=== PATIENT | male | born 1985 | race Caucasian/White ===

== ENCOUNTER 2023-06-13 08:07 | Outpatient (RCR) | payer OTHER, SELFPAY ==
--- NOTE | 2023-06-01 12:09 | ONC.NURNOTE ---
Addendum entered by Alejandra Montiel RN 06/12/23 09:51: Email from provider seeing patient notes to have labs completed prior to seeing patient and determine need for scans at the appointment. Nursing attempted to contact patient to let him know, but his voicemail is not set up. Original Note: Patient called and talked with MO to say that he now has insurance and would like to follow up with oncology. Legal Clerk looked through information, patient was last treated with pembrolizumab on 11/05/2021 and seen on 01/13/[address] Georges. At this appointment discussion was had to be seen by dermatology every 6 months and follow up with scans in three months. These appointments were cancelled. Will discuss with Dr. Georges next week to determine what needs prior to being seen. Patient made aware of this, and asked that he establish care with technical sme. Patient will work on setting up that appointment and nursing to discuss with him when making follow up appointment.
[2023-06-13 08:29] LABS: Basophils Absolute Auto 0.02 K/uL (0.00-0.30); Basophils Percent Auto 0.3 % (0.0-3.0); Eosinophils Percent Auto 2.7 % (0.0-7.0); Hematocrit 49.9 % (37.0-53.0); Hemoglobin* 16.5 gm/dL (13.5-17.5); Immature Granulocytes Abs Auto 0.07 K/uL (0.00-0.30); Immature Granulocytes Pct Auto 0.9 %; Lymphocytes Absolute Auto 1.92 K/uL (0.90-2.90); Mean Corpuscular HGB Conc 33 gm/dL (32-36); Mean Corpuscular Hemoglobin 30 pg (26-34); Mean Corpuscular Volume 91 fL (80-100); Monocytes Percent Auto 9.9 % (0.0-11.0); Neutrophils Absolute Auto 4.44 K/uL (1.7-7.0); Neutrophils Percent Auto 60.2 % (42.0-72.0); Platelet Count* 290 K/uL (140-440); Red Blood Count 5.47 m/uL (4.30-5.90); White Blood Count* 7.38 K/uL (4.50-11.00)
[2023-06-13 08:30] LABS: Slide Review Reflex No
[2023-06-13 08:40] LABS: Albumin* 4.1 g/dL (3.3-5.0)
[2023-06-13 08:41] LABS: Chloride* 105 mmol/L (96-114); Potassium* 4.1 mmol/L (3.6-5.1); Sodium* 141 mmol/L (135-149)
[2023-06-13 08:43] LABS: Alkaline Phosphatase* 45 U/L (40-150); Anion Gap 5 mEq/L (7-15); Aspartate Amino Transferase* 30 U/L (12-35); Bilirubin Total* 0.6 mg/dL (0.1-1.5); Blood Urea Nitrogen* 16 mg/dL (5-24); Carbon Dioxide* 31 mmol/L (20-32); Estimated Glomerular Filt Rate 99 ml/min; Total Protein* 6.9 g/dL (6.0-8.3)
[2023-06-13 08:44] LABS: Alanine Aminotransferase* 35 U/L (4-50); Calcium* 9.2 mg/dL (8.4-10.6); Lactate Dehydrogenase* 152 U/L (120-246)
[2023-06-13 08:51] LABS: Glucose* 44 mg/dL (60-115)
[2023-06-13 10:12] LABS: Glucose* 60 mg/dL (60-115)
--- NOTE | 2023-08-16 14:04 | ONC.NURNOTE ---
MRI and PET reviewed by Dr. Johns and pt should follow up in October. Launderette Attendant left pt a message stating Dr. Johns reviewed scans and pt should come in to see Dr. Johns on Oct 11 as previously scheduled.
== END 2023-12-10 23:59 | disposition home or self-care (01) ==
LOC: CCIC 08:07
PROVIDERS: Clinical Nurse Specialist; PCP Emergency Medicine; Referring Provider Emergency Medicine; Visit Provider Internal Medicine Hematology & Oncology
DX: C43.59 Malignant melanoma of other part of trunk (principal); E16.2 Hypoglycemia, unspecified
CPT/HCPCS: 36415; 80053; 82947; 83615; 85025; 99213; 99214; 99215

== ENCOUNTER 2023-07-27 16:47 | Outpatient (CLI) | payer OTHER, SELFPAY ==
--- NOTE | 2023-07-27 17:00 | PE_ITS ---
[address] [address] Phone:?[phone] Fax:?[phone] Referring Physician Information: Callie Johns M.D. [address] [facility] [address] Phone:? Fax:?[phone] Patient:Elizabeth Galvan D.O.B:?1985 Sex:?Male Phone:?[phone] [facility] MRN:?[id number] Exam Date:?07/27/2023 EXAM: PET/CT SCAN MID-ORBITS TO PROXIMAL THIGHS Addendum A EXAM: PET/CT WHOLE BODY, CANCER RESTAGING S: 10/16/23 Electronically signed on 10/06/2023 1:56:00 PM by Omid Vo M.D. Addendum B EXAM: PET/CT VERTEX TO TOES, CANCER RESTAGING S: 10/09/23 Electronically signed on 10/09/2023 8:52:00 AM by Omid Vo M.D. 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 Restaging evaluation. TECHNICAL INFORMATION: Spiral acquisition of data was obtained from the mid orbits to the proximal thighs with reconstruction of 3.75 mm thick images at 3.[address] data was used for attenuation correction. PET scanning was performed through the same anatomic range 52 minutes following administration of 13.33 mCi of 18-FDG delivered intravenously. The patient's glucose at the time of the injection was 69 mg/dL. PET, CT and PET/CT fusion images are interpreted using a computer viewing workstation. COMPARISON: PET/CT 02/23/2022. INTERPRETATION: Head and Neck: No abnormal radiotracer uptake. No pathologic adenopathy. Chest: No PET/CT activity of the posterior chest wall soft tissues. No axillary, hilar or mediastinal adenopathy. Stable calcified granuloma anterior left upper lobe and left major fissure nodule. Postsurgical changes left axilla without FDG uptake. No pleural or pericardial effusion. Abdomen, Pelvis and Proximal Thighs: No abnormal FDG uptake within the abdomen or pelvis. No osseous abnormality. Subcutaneous activity of the right and left gluteal region. No obvious lesion is identified. Minimal subcutaneous stranding identified, stable on the right since 02/24/2022 and activity on the left appears new. Benign etiology is favored. Clinical correlation is advised. CONCLUSION: 1. FDG activity in the subcutaneous right and left gluteal region, relatively stable on the right since 2021 and new on the left, nonspecific finding, benign etiology is favored. Clinical correlation is advised. No additional PET CT abnormality to suggest residual or recurrent disease. Electronically signed on 07/28/2023 10:54:00 AM by Omid Vo M.D.
== END 2023-07-27 16:48 | disposition home or self-care (01) ==
LOC: RAD 16:48
PROVIDERS: PCP Emergency Medicine; Visit Provider Internal Medicine Hematology & Oncology
DX: C43.39 Malignant melanoma of other parts of face (principal)
CPT/HCPCS: 78816; A9552

== ENCOUNTER 2023-08-15 10:31 | Outpatient (CLI) | payer OTHER, SELFPAY ==
--- NOTE | 2023-08-15 10:15 | CRLHL7_ITS ---
For Patients: As a result of the Century Cures Act, medical imaging exams and procedure reports are released immediately into your electronic medical record. You may view this report before your referring provider. If you have questions, please contact your health care provider. Indication: Malignant melanoma. Technique: T1 sagittal as well as diffusion, FLAIR and T2 axial sequences were obtained. Post gadolinium T1 sequences were obtained. Contrast: 15 cc DOTAREM. Comparison: None are available. Findings: No abnormal contrast enhancement involving the brain parenchyma, meninges, calvarium or skull base. No evidence for recent or remote infarct or hemorrhage. No intracranial mass effect. No ventricular obstruction. No signal changes in the brain parenchyma. Grossly normal flow voids are maintained in the directly imaged intracranial vascular structures. The craniovertebral junction is unremarkable, with a patent foramen magnum. A few tiny opacified air cells are seen in the periphery of both mastoids. There is slight membrane thickening in the ethmoid paranasal sinuses. Impression: 1. The intracranial contents are negative. No evidence for metastatic disease. 2. A few opacified air cells are seen in both peripheral mastoids. Dictated by Sam Oliva MD @ 08/15/2023 2:24:39 PM (Electronically Signed)
== END 2023-08-15 10:32 | disposition home or self-care (01) ==
LOC: MRI 10:32
PROVIDERS: PCP Emergency Medicine; Visit Provider Internal Medicine Hematology & Oncology
DX: C43.9 Malignant melanoma of skin, unspecified (principal)
CPT/HCPCS: 70553; A9575

== ENCOUNTER 2024-03-07 14:40 | Outpatient (CLI) | payer OTHER, SELFPAY ==
--- NOTE | 2024-03-07 16:00 | PE_ITS ---
[facility] [address] [facility] [address] Phone:?[phone] Fax:?[phone] Referring Physician Information: Callie Johns M.D. [address] [facility] [address] Phone:?[phone] Fax:?[phone] Patient:Elizabeth Galvan D.O.B:?1985 Sex:?Male Phone:?[phone] [facility] MRN:?[id number] Exam Date:?03/07/2024 EXAM: PET/CT WHOLE BODY, CANCER RESTAGING CLINICAL INFORMATION: Melanoma, restaging. TECHNICAL INFORMATION: Helical acquisition of data was obtained from the vertex to the toes with reconstruction of 3.75 mm thick images at 3.[address] data was used for attenuation correction. PET scanning was performed through the same anatomic range 60 minutes following administration of 13.37 mCi of 18-FDG delivered intravenously. The patient's glucose at the time of the injection was 66 mg/dL. PET, CT and PET/CT fusion images are interpreted using a computer viewing workstation. PET, CT and PET/CT fusion images were archived and saved in the patient's permanent medical record. COMPARISON: PET-CT from 07/27/2023 and prior studies. INTERPRETATION: Head and Neck: There are no abnormal hypermetabolic foci within the head or neck. There is physiologic uptake in the intracranial soft tissues. Chest: There are no abnormal hypermetabolic foci within the chest. Background mediastinal blood pool uptake has a maximum SUV of 1.55. No lung nodules or masses detected on this free-breathing exam. No lymphadenopathy detected. Abdomen and Pelvis: There are no abnormal hypermetabolic foci within the abdomen or pelvis. Background hepatic parenchymal uptake has a maximum SUV of 2.17. There is physiologic excretion of radiotracer in the urine and bowel. Skeleton, Musculature, and Integument: There is a new focus of increased FDG uptake corresponding to the left L5-S1 nerve root (Se 2 Im 264) with a maximum SUV of 7.06. No abnormal hypermetabolic foci within the skeleton, per se. No desiree osteoblastic or osteolytic disease. CONCLUSION: Active melanoma is thought to be extremely unlikely in this case. A new focus of hypermetabolism involving the left L5-S1 nerve root would be highly unusual for solitary metastasis. More likely considerations include focal disc herniation versus a nerve sheath tumor. Recommend lumbar MRI without and with gadolinium for further evaluation. The remainder of the examination is within normal limits. Electronically signed on 03/08/2024 2:22:00 PM by Michael oPllard M.D.
== END 2024-03-07 14:41 | disposition home or self-care (01) ==
PROVIDERS: PCP Emergency Medicine; Visit Provider Internal Medicine Hematology & Oncology
DX: Z08 Encounter for follow-up examination after completed treatment for malignant neoplasm (principal); C43.39 Malignant melanoma of other parts of face; Z71.89 Other specified counseling
CPT/HCPCS: 36415; 78816; 80053; 83615; 85025; A9552

== ENCOUNTER 2024-05-10 13:22 | Outpatient (CLI) | payer MEDICARE, SELFPAY ==
--- NOTE | 2024-05-10 13:45 | CRLHL7_ITS ---
For Patients: As a result of the Century Cures Act, medical imaging exams and procedure reports are released immediately into your electronic medical record. You may view this report before your referring provider. If you have questions, please contact your health care provider. Indication: Malignant melanoma of skin. PET scan demonstrating lesion at L5-S1 Technique: Multiplanar, multisequence, MRI of the lumbar spine, obtained without and with contrast. A total of 15 mL of gadolinium based IV contrast was administered. Comparison: PET-CT 03/07/2024, 07/27/2023 Findings: There is focal nodular enlargement and enhancement in the region of the left L5 nerve root-sheath complex at the left L5-S1 neural foramen, corresponding to the new FDG avid focus on recent PET-CT. On the sagittal T1 and T2 sequences (series 2 and 3, image 13), there is lobulated slightly hyperintense signal and enhancement superiorly attributed to the nerve sheath, with the hypointense nerve root appearing slightly deformed/flattened inferiorly. A small enhancing T2 hyperintense focus is present within the left aspect of the L3 vertebral body, with subtle intrinsic T1 shortening, suggestive of a small intraosseous hemangioma. Remaining bone marrow signal is unremarkable. No other abnormal postcontrast enhancement identified. The conus medullaris terminates at L1. The included SI joints are unremarkable. T12-L1 through L3-L4: No neural foraminal or spinal canal stenosis. L4-L5: Disc degeneration, shallow central disc protrusion and annular fissure, mild facet arthropathy. Mild left, mild-moderate right neural foraminal narrowing. No spinal canal stenosis. L5-S1: Disc degeneration, broad-based right subarticular disc protrusion slightly encroaching upon the descending right S1 nerve root. No spondylitic narrowing of the neural foramina or central spinal canal. Impression: 1. Solitary lobulated 6-7 mm enhancing focus at the left L5-S1 neural foramen corresponds to the new FDG avid lesion on recent PET-CT. 2. It appears to inferiorly displace/deform the underlying left L5 nerve root, suggestive of nerve sheath tumor such as schwannoma. 3. Metastatic disease is thought much less likely. Clinical correlation and attention on follow-up advised. 4. Lower lumbar spondylosis as detailed. Dictated by Celsa Luis MD @ 05/10/2024 3:37:21 PM (Electronically Signed)
== END 2024-05-10 13:23 | disposition home or self-care (01) ==
LOC: MRI 13:23
PROVIDERS: PCP Family Medicine; Visit Provider Internal Medicine Hematology & Oncology
DX: C43.9 Malignant melanoma of skin, unspecified (principal); M47.896 Other spondylosis, lumbar region
CPT/HCPCS: 72158; A9575

== ENCOUNTER 2024-08-07 09:09 | Outpatient (CLI) | payer OTHER, SELFPAY ==
--- NOTE | 2024-08-07 09:15 | CRLHL7_ITS ---
For Patients: As a result of the Century Cures Act, medical imaging exams and procedure reports are released immediately into your electronic medical record. You may view this report before your referring provider. If you have questions, please contact your health care provider. Indication: Melanoma. Technique: Multisequence multiplanar MRI of the lumbar spine prior to and following administration of 15 cc Dotarem gadolinium based intravenous contrast. Comparison: MRI lumbar spine dated 05/10/2024. Findings: Normal vertebral alignment and stature. Stable L3 vertebral hemangioma. Unchanged 12 mm enhancing lesion within left L5-S1 neural foramen (series 8, image 38). No focus of new abnormal enhancement. T12-L1 through L3-L4: No significant spinal canal or neural foraminal stenosis. L4-L5: Mild disc desiccation and height loss. Symmetric disc bulge containing a small horizontal annular fissure. Mild narrowing of the lateral recesses without high-grade spinal canal stenosis. Mild-moderate bilateral neural foraminal narrowing. L5-S1: Symmetric disc bulge with small right paracentral disc protrusion questionably contacting the traversing right S1 nerve root (series 6, image 40). Mild bilateral neural foraminal narrowing with enhancing lesion in the left neural foramen as above. Impression: 1. Unchanged solitary enhancing lesion within the left L5-S1 neural foramen most consistent with peripheral nerve sheath tumor such as schwannoma. 2. Otherwise, no abnormal enhancement or suspicious lesion within the lumbar spine. 3. At L4-L5, similar mild narrowing of the lateral recesses and mild-moderate bilateral neural foraminal narrowing. 4. At L5-S1, similar right paracentral disc protrusion questionably contacting the traversing S1 nerve root. Dictated by Sundeep Salinas MD @ 08/08/2024 4:18:41 PM (Electronically Signed)
== END 2024-08-07 09:10 | disposition home or self-care (01) ==
PROVIDERS: PCP Family Medicine; Visit Provider Neurological Surgery
DX: C43.9 Malignant melanoma of skin, unspecified (principal); M51.26 Other intervertebral disc displacement, lumbar region; M51.27 Other intervertebral disc displacement, lumbosacral region
CPT/HCPCS: 72158; A9575

== ENCOUNTER 2024-08-14 11:00 | Outpatient (RCR) | payer OTHER, SELFPAY ==
--- NOTE | 2024-03-05 10:18 | ONC.NURNOTE ---
Received phone call from [facility] stating that they are unable to get ahold of patient for his PET scan on . At first no VM was set up, now their number is blocked. [facility] asks that [facility]] call patient to be sure that he calls to confirm his appointment by 11AM on Monday, or his appointment will be pushed out. ([phone], option 1) Padded Products Inspector Trimmer attempted to call patient, and unable to leave voicemail. Will continue to call throughout the day.
--- NOTE | 2024-03-05 14:12 | PC.NURSE ---
Reached pt this afternoon and urged him to call [facility] in preparation for 's PET scan. After multiple attempts, pt answered. He was given phone number to call.
[2024-03-07 14:54] LABS: Basophils Absolute Auto 0.01 K/uL (0.00-0.30); Basophils Percent Auto 0.2 % (0.0-3.0); Eosinophils Percent Auto 1.6 % (0.0-7.0); Hematocrit 44.1 % (37.0-53.0); Hemoglobin* 14.3 gm/dL (13.5-17.5); Immature Granulocytes Abs Auto 0.02 K/uL (0.00-0.30); Immature Granulocytes Pct Auto 0.3 %; Lymphocytes Percent Auto 29.6 % (20-44); Mean Corpuscular HGB Conc 32 gm/dL (32-36); Mean Corpuscular Hemoglobin 31 pg (26-34); Mean Corpuscular Volume 96 fL (80-100); Monocytes Percent Auto 7.7 % (0.0-11.0); Neutrophils Absolute Auto 3.69 K/uL (1.7-7.0); Neutrophils Percent Auto 60.6 % (42.0-72.0); Platelet Count* 307 K/uL (140-440); RDW Coefficient of Variation % 12.4 % (11.5-15.5); Red Blood Count 4.62 m/uL (4.30-5.90); White Blood Count* 6.09 K/uL (4.50-11.00)
[2024-03-07 14:57] LABS: Slide Review Reflex No
[2024-03-07 15:09] LABS: Albumin* 4.8 g/dL (3.3-5.0); Chloride* 107 mmol/L (96-114); Potassium* 4.6 mmol/L (3.6-5.1); Sodium* 140 mmol/L (135-149)
[2024-03-07 15:12] LABS: Alanine Aminotransferase* 30 U/L (4-50); Alkaline Phosphatase* 68 U/L (40-150); Anion Gap 9 mEq/L (7-15); Aspartate Amino Transferase* 51 U/L (12-35); Bilirubin Total* 0.8 mg/dL (0.1-1.5); Blood Urea Nitrogen* 27 mg/dL (5-24); Carbon Dioxide* 24 mmol/L (20-32); Creatinine* 1.1 mg/dL (0.5-1.5); Estimated Glomerular Filt Rate 88 ml/min; Glucose* 75 mg/dL (60-115); Lactate Dehydrogenase* 178 U/L (120-246); Total Protein* 7.1 g/dL (6.0-8.3)
[2024-08-14 11:21] LABS: Basophils Absolute Auto 0.03 K/uL (0.00-0.30); Basophils Percent Auto 0.4 % (0.0-3.0); Eosinophils Absolute Auto 0.08 K/uL (0.00-0.50); Hematocrit 46.2 % (37.0-53.0); Hemoglobin* 15.4 gm/dL (13.5-17.5); Immature Granulocytes Abs Auto 0.01 K/uL (0.00-0.30); Immature Granulocytes Pct Auto 0.1 %; Lymphocytes Absolute Auto 1.92 K/uL (0.90-2.90); Lymphocytes Percent Auto 23.5 % (20-44); Mean Corpuscular HGB Conc 33 gm/dL (32-36); Mean Corpuscular Hemoglobin 31 pg (26-34); Mean Corpuscular Volume 92 fL (80-100); Monocytes Percent Auto 9.4 % (0.0-11.0); Neutrophils Absolute Auto 5.37 K/uL (1.7-7.0); Neutrophils Percent Auto 65.6 % (42.0-72.0); Platelet Count* 342 K/uL (140-440); RDW Coefficient of Variation % 12.4 % (11.5-15.5); Red Blood Count 5.04 m/uL (4.30-5.90); White Blood Count* 8.18 K/uL (4.50-11.00)
[2024-08-14 11:31] LABS: Slide Review Reflex No
[2024-08-14 11:34] LABS: Chloride* 103 mmol/L (96-114)
[2024-08-14 11:35] LABS: Sodium* 138 mmol/L (135-149)
[2024-08-14 11:36] LABS: Albumin* 4.7 g/dL (3.3-5.0)
[2024-08-14 11:37] LABS: Bilirubin Total* 0.8 mg/dL (0.1-1.5); Creatinine* 0.9 mg/dL (0.5-1.5); Est. Creatinine Clearance* 110.66; Estimated Glomerular Filt Rate 111 ml/min
[2024-08-14 11:38] LABS: Alanine Aminotransferase* 20 U/L (4-50); Alkaline Phosphatase* 50 U/L (40-150); Aspartate Amino Transferase* 22 U/L (12-35); Blood Urea Nitrogen* 11 mg/dL (5-24); Calcium* 9.3 mg/dL (8.4-10.6); Glucose* 77 mg/dL (60-115); Lactate Dehydrogenase* 151 U/L (120-246); Potassium* 3.9 mmol/L (3.6-5.1); Total Protein* 7.3 g/dL (6.0-8.3)
[2024-08-14 11:41] LABS: Anion Gap 10 mEq/L (7-15); Carbon Dioxide* 25 mmol/L (20-32)
--- NOTE | 2024-08-16 15:33 | ONC.NURNOTE ---
Patient called today because he couldn't remember or find the name of the surgeon he is suppose to see after having an MRI. On review of his chart advised patient he should be seeing [facility], give him number for them listed in his chart. Advised him to call with further questions if needed.
== END 2024-09-03 23:59 | disposition home or self-care (01) ==
LOC: CCIC 11:00
PROVIDERS: PCP Emergency Medicine; Referring Provider Emergency Medicine; Visit Provider Internal Medicine Hematology & Oncology
DX: C43.39 Malignant melanoma of other parts of face (principal); Z72.0 Tobacco use
CPT/HCPCS: 36415; 80053; 83615; 85025; 99202; 99213; 99214; G0463

== ENCOUNTER 2025-03-28 15:19 | Outpatient (CLI) | payer MEDICAID, SELFPAY ==
--- NOTE | 2025-03-28 15:30 | CRLHL7_ITS ---
For Patients: As a result of the Century Cures Act, medical imaging exams and procedure reports are released immediately into your electronic medical record. You may view this report before your referring provider. If you have questions, please contact your health care provider. INDICATION: Nerve sheath tumor. Comparison 08/07/2024 and 05/10/2024. TECHNIQUE: Sagittal T1, T2, and STIR sequences. Axial T1 and T2 weighted sequences.. Post gadolinium T1 weighted sequences. Gadolinium 15 cc IV. FINDINGS: Normal vertebral body alignment. No fractures. No vertebral body loss of height. No spondylosis is. No evidence injury. No suspicious osseous lesions. Normal conus terminates at L1. T12-L1 L1-2 L2-3: No spinal canal or neural foraminal narrowing. L3-4: No spinal canal or neural foraminal narrowing. L4-5: Posterior disc bulge with tiny central annular fissure. No narrowing of spinal canal. Stable mild to moderate narrowing of bilateral foramina. Mild facet arthropathy. L5-S1: Stable disc degeneration posterior disc bulge. Tiny annular fissure along the right paracentral zone. No narrowing of spinal canal. No impingement of the traversing S1 nerve roots. Compared to the previous exam, stable size and appearance of the enhancing rounded mass within the left neural foramen measuring approximately 12 x 9 mm (series 7, image 39) consistent with a nerve sheath tumor. Mild degenerative changes of the SI joints. Normal paraspinal soft tissues. IMPRESSION: 1. No interval change. 2. Stable size and appearance the enhancing ovoid mass within the left L5-S1 neural foramen consistent with a nerve sheath tumor such as a schwannoma. 3. No new abnormal enhancement elsewhere. 4. Normal alignment. No fractures 5. At L4-5, posterior disc bulge with a tiny central annular fissure. No spinal canal narrowing. Stable hlyi-ft-[id number] narrowing of the bilateral neural foramina Dictated by Cristopher Salinas MD @ 03/30/2025 8:17:15 PM (Electronically Signed)
--- OUTSIDE RECORDS SUMMARY | 2025-03-28 15:34 | XMS_ITS | Clinical Summary ---
Author Organization [facility] Address [address] [place] [address] Care Team Providers Care Occupational Therapy Co Director Name Role Phone Clinic, [facility] Pro vider Allergies Active Allergy Reactions Criticality Noted Date Comments Silver Rash Low 12/03/2022 Medications * This document contains information received from the source organization and may not represent a complete record from that organization. escitalopram (LEXAPRO) 10 MG tabletIndication s:Depression, unspecified depression type,Generalized anxiety disorder Take 1 tablet (10 mg) by mouth daily 30 tablet 1 3 Active QUEtiapine (SEROQUEL) 25 MG tabletIndication s:Generalized anxiety disorder Take 1 tablet (25 mg) by mouth every 4 hours as needed (anxiety, panic, agitation) 90 tablet 1 3 Active gabapentin (NEURONTIN) 400 MG capsuleIndicatio ns:Generalized anxiety disorder Take 1 capsule (400 mg) by mouth 3 times daily 90 capsule 1 3 Active Lidocaine (LIDOCARE) 4 % Patch Place 1 patch onto the skin daily as needed for moderate pain To prevent lidocaine toxicity, patient should be patch free for 12 hrs daily. 5 patch 4 Active Active Problems Problem Noted Date Diagnosed Date Bipolar disorder in partial remission, most recent episode unspecified type 09/18/2023 Moderate episode of recurrent major depressive d isorder 09/18/2023 Anxiety 09/18/2023 Alcohol use disorder 09/18/2023 Alcohol abuse 09/18/2023 Depression, unspecified depression type 09/18/20 Tobacco abuse 05/09/2013 ADHD (attention deficit hyperactivity disorder) 11/01/2012 Immunizations Immunization Administration Dates Next Due TD,PF 7+ (Teniva) 06/21/2004 Social History Tobacco Use Types Packs/Day Years Used Date Smoking Tobacco: Every Day Cigarettes Tobacco Cessation:Ready to Q uit: No; Counseling Given: No Alcohol Use Standard Drinks/Week Comments Yes 12 (1 standard drink = 0.6 oz pu re alcohol) Adolescent Education Answer Date Record ed Getting School Help Needed Not on file 06/24 Sex and Gender Information Value Date Recorded Sex Assigned at Not on file Legal Sex Male 4:22 AM [employer]ERRYBOAT CAP[employer] Gender Identity Not on file Sexual Orientation Not on file Last Filed Vital Signs Vital Sign Reading Time Taken Comments Blood Pressure 141/97 03/20/2024 12:30 AM CDT Pulse 94 03/20/2024 12:30 AM CDT Temperature 37.1 C (98.7 F) 03/20/2024 12:30 AM CDT Respiratory Rate 18 03/20/2024 12:3 0 AM CDT Oxygen Saturation 98% 03/20/2024 12: 30 AM CDT Inhaled Oxygen Concentration - - Weight 79.3 kg (174 lb 13.2 oz) 01/14/2024 5:45 PM CDT Height 185.4 cm (6' 1) 01/14/2024 5:45 PM CDT Body Mass Index 23.07 01/14/2024 5:45 PM CDT Plan of Treatment Health Maintenance Due Date Last Done Comments ADVANCE CARE PLANNING 1985 ANNUAL REVIEW OF HM ORDERS 1985 YEARLY PREVENTIVE VISIT 1987 HIV SCREENING 1999 HEPATITIS C SCREENING 2002 HEPATITIS B VACCINE (1 of 3 - 19+ 3-dose series) 2003 PNEUMOCOCCAL VACCINE: PEDIATRICS (0 to 5 YEARS) AND AT-RISK PATIENTS (6 to 49 YEARS) (1 of 2 - PCV) 2003 COVID-19 VACCINE (1 - 2023- season) 2024 INFLUENZA VACCINE (Season Ended) 2025 DIABETES SCREENING 01/13/2027 01/14/2024, 0 11/26/2023, 09/19/2023, Additional history exists LIPID 09/19/2028 09/19/2023 DTAP/TDAP/TD VACCINE (3 - Td or Tdap) 08/28/2030 08/28/2020, 06/21/2004 ZOSTER VACCINE (1 of 2) 2034 HPV VACCINE Aged Out No longer eligi ble based on patient's age to complete this topic MENINGITIS VACCINE Aged Out No longer eligible based on patient's age to complete this topic Procedures Procedure Name Priority Date/Time Associated Diagnosis Comments BASIC METABOLIC PANEL STAT 01/14/2024 6:29 PM CDT LIPID PROFILE Routine 09/19/2023 8:26 AM FERRYBOAT CAPTAIN from Last 3 Months or Most Recently Relevant to Health Maintenance Results * Basic metabolic panel (01/14/2024 6:29 PM CDT) Sodium 140 135 - 145 mmol/L 01/14/2024 6:54 PM CDT [facility] Comment:Reference intervals for this test were updated on 06/27/2023 to more accurately reflect our healthy population. There may be differences in the flagging of prior results with similar values performed with this method. Interpretation of those prior results can be made in the context of the updated reference intervals. Potassium 4.4 3.4 - 5.3 mmol/L 01/14/2024 6:54 PM CDT [facility] Chloride 101 98 - 107 mmol/L 01/14/2024 6:54 PM CDT [facility] Carbon Dioxide (CO2) 27 22 - 29 mmol/L 01/14/2024 6:54 PM CDT [facility] Anion Gap 12 7 - 15 mmol/L 01/14/2024 6:54 PM CDT [facility] Urea Nitrogen 8.7 6.0 - 20.0 mg/dL 01/14/2024 6:54 PM CDT [facility] Creatinine 0.99 0.67 - 1.17 mg/dL 01/14/2024 6:54 PM CDT [facility] GFR Estimate >90 >60 mL/min/1. 73m2 01/14/2024 6:54 PM CDT [facility] Calcium 9.7 8.6 - 10.0 mg/dL 01/14/2024 6:54 PM CDT [facility] Glucose 99 70 - 99 mg/dL 01/14/2024 6:54 PM CDT [facility] Blood BLOOD SPECIMEN / Unknown Venipuncture / Unknown 01/14/2024 6:29 PM CDT 01/14/2024 6:37 PM CDT us Rahat Serrano PA-C LAB - BLOOD ORDERABLE S Final Result [facility] [address] Lab (1st floor, no room number) [place] [address], [facility] * Lipid panel (09/19/2023 8:26 AM FERRYBOAT CAPTAIN) Cholesterol 152 <200 mg/dL 09/19/2023 9:30 AM FERRYBOAT CAPTAIN [facility] Triglycerides 106 <150 mg/dL 09/19/2023 9:30 AM FERR[employer]BOAT CAPTAIN [facility] Direct Measure HDL 65 >=40 mg/dL 2022 9:30 AM FERRYBOAT CAPTAIN [facility] LDL Cholesterol Calculated 66 <=100 mg/dL 09/19/2023 9:30 AM FERRYBOAT CAPTAIN [facility] Non HDL Cholesterol 87 <130 mg/dL 09/19/2023 9:30 AM FERRYBOAT CAPTAIN [facility] Blood BLOOD SPECIMEN / Unknown Venipuncture / Unknown 09/19/2023 8:26 AM FERRYBOAT CAPTAIN 09/19/2023 8:54 AM FERRYBOAT CAPTAIN Narrative [facility] - 09/19/2023 9:30 AM FERRYBOAT CAPTAIN Cholesterol Desirable: <200 mg/dL Triglycerides Normal: Less than 150 mg/dL Borderline High: 150-199 mg/dL High: 200-499 mg/dL Very High: Greater than or equal to 500 mg/dL Direct Measure HDL Female: Greater than or equal to 50 mg/dL Male: Greater than or equal to 40 mg/dL LDL Cholesterol Desirable: <100mg/dL Above Desirable: 100-129 mg/dL Borderline High: 130-159 mg/dL High: 160-189 mg/dL Very High: >= 190 mg/dL Non HDL Cholesterol Desirable: 130 mg/dL Above Desirable: 130-159 mg/dL Borderline High: 160-189 mg/dL High: 190-219 mg/dL Very High: Greater than or equal to 220 mg/dL Valarie Hayes APRN [employer] LAB - BLOOD ORDER JEFE Final Result [facility] [address] [facility] [place] [address], [facility] [phone] from Last 3 Months or Most Recently Relevant to Health Maintenance Advance Directives For more information, please contact: [phone] * Full Code (Latest Code Status on File) Date Activated Date Inactivated Comments 09/18/2023 10:45 PM 09/20/2023 2:52 PM All basic and advanced life-sustaining interventions are performed as appropriate Question Answer Comments Code status determined by: Discussion with sisi lopez/ legal decision maker Care Teams Occupational Therapy Co Director Relationship Specialty Start Date End Date [facility] [id number] [place] [id number] PCP - General 10/08/23
--- OUTSIDE RECORDS SUMMARY | 2025-03-28 15:34 | XMS_ITS | Clinical Summary ---
Author Organization [employer] [facility] Address [address] [place] [address] Care Team Providers Care Sleeve Separator Name Role Phone None, Provided Primary Care Provider Unavailabl e Allergies No known active allergies Medications QUEtiapine (SEROQUEL) 25 mg tablet Take 25 mg by mouth every 4 hours if needed (withdrawal symptoms). Active Encounters Date Type Department Care Team Description 03/28/2025 [facility] [address] [place] [phone] Neptali Latham, [facility] Imaging from Last 3 Months Social History Tobacco Use Types Packs/Day Years Used Date Smoking Tobacco: Every Day Cigarettes Smokeless Tobacco: Never Alcohol Use Standard Drinks/Week Comments Not Asked 0 (1 standard drink = 0.6 oz pur e alcohol) Interpersonal Safety Answer Date Record ed Are you being hit, kicked, p ushed or yelled at (see row info)? No 10/02/2024 Interpersonal Safety Abuse 12 - 18 Not on file 10/02/2024 Interpersonal Safety Ambulatory Vulnerability No t on file 10/02/2024 Sex and Gender Information Value Date Recorded Sex Assigned at Not on file Legal Sex Male 5:23 AM PSYCH RN Gender Identity Not on file Sexual Orientation Not on file Obstetrics History Last Filed Vital Signs Vital Sign Reading Time Taken Comments Blood Pressure 159/88 10/03/2024 11:23 AM PSYCH RN Pulse 88 10/03/2024 11:23 AM PSYCH RN Temperature 37.1 C (98.7 F) 10/03/2024 7:20 AM PSYCH RN Respiratory Rate 16 10/03/2024 7:20 AM PSYCH RN Oxygen Saturation 97% 10/03/2024 11:23 AM PSYCH RN Inhaled Oxygen Concentration - - Weight 74.8 kg (165 lb) 10/02/2024 1:30 PM PSYCH RN Height 188 cm (6' 2) 10/02/2024 1:30 PM PSYCH RN Body Mass Index 21.18 10/02/2024 1:30 PM PSYCH RN Plan of Treatment Health Maintenance Due Date Last Done Comments Tdap 1995 Depression screening for age 12+ 1996 HIV for age 15-65 1999 BMI (ht and wt on same day) for age 18+ 2002 Hepatitis C screening for ag e 18-79 2002 Hepatitis B series for 19+ ( 1 of 3 - 19+ 3-dose series) 2003 Tetanus booster 2004 Lipids for age 35-44 2019 COVID-19 vaccine series ( season) 2024 Influenza Vaccine (Season Ended) 2025 Pneumococcal series for age 6-49 Aged Out No longer eligible based on patient's age to complete this topic Insurance [employer] Care Teams Sleeve Separator Relationship Specialty Start Date End Date None, Provided . PCP - General 06/22/10
--- OUTSIDE RECORDS SUMMARY | 2025-03-28 15:34 | XMS_ITS | Clinical Summary ---
Author Organization [facility] Address [address] [place] [address] Care Team Providers Care Internet And E Business Project Manager Name Role Phone Needs Pcp, Assignment Primary Care Provider Source Comments You are receiving this document as you are listed as the primary care provider,follow-up provider, or the patient has been referred to you for consultation.This is in compliance with the Medicare andMedicaid EHR Incentive Program,which states Providers who transition their patient to another setting of careor provider of care or refers their patient to another provider of care shouldprovide summary care record for each transition of care or referral. [facility] Allergies Active Allergy Reactions Criticality Noted Date Comments Silver Rash 12/03/2022 Medications * This document contains information received from the source organization and may not represent a complete record from that organization. FLUoxetine (PROZAC) 20 MG capsule Take 1 Capsule (20 mg) by mouth daily at bedtime. 30 Capsule 3 12/05/2022 Active gabapentin (NEURONTIN) 300 MG capsule Take 1 Capsule (300 mg) by mouth three times a day. 90 Capsule 3 12/05/2022 Active Active Problems Problem Noted Date Diagnosed Date Recurrent major depressive disorder 12/03/2022 Tobacco abuse 05/09/2013 Testicular/scrotal pain 11/01/2012 ADHD (attention deficit hyperactivity disorder) 11/01/2012 Family History Relation Name Status Comments Father Alive Mother Alive Brother Alive Sister Alive Social History Tobacco Use Types Packs/Day Years Used Date Smoking Tobacco: Every Day Cigarettes Electric Cigarette Smokeless Tobacco: Never Tobacco Cessation:Ready to Q uit: No Comments:e-cig, weaning down nicotine Alcohol Use Standard Drinks/Week Comments Yes 3 (1 standard drink = 0.6 oz pur e alcohol) couple 3 to 3 per months Sex and Gender Information Value Date Recorded Sex Assigned at Not on file Legal Sex Male 5:22 AM CDT Gender Identity Not on file Sexual Orientation Not on file 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 Not on file Not on file Last Filed Vital Signs Vital Sign Reading Time Taken Comments Blood Pressure 131/93 12/05/2022 8:13 AM DIRECTOR PHONE Pulse 110 12/05/2022 8:13 AM DIRECTOR PHONE Temperature 36.3 C (97.4 F) 12/05/2022 8:13 AM DIRECTOR PHONE Respiratory Rate 20 12/05/2022 8:13 AM DIRECTOR PHONE Oxygen Saturation 98% 12/05/2022 8:13 AM DIRECTOR PHONE Inhaled Oxygen Concentration - - Weight 76.7 kg (169 lb) 12/03/2022 2:09 AM DIRECTOR PHONE Height 185.4 cm (6' 1) 12/03/2022 2:09 AM DIRECTOR PHONE Body Mass Index 22.3 12/03/2022 2:09 AM DIRECTOR PHONE Plan of Treatment Health Maintenance Due Date Last Done Comments Hep C Screening (Preventive Services) 1984 Adult Preventive Visit 2002 HepB Vaccine (1) 2003 Pneumococcal Vaccine (1 of 2 - PCV) 2003 Cholesterol 08/20/2020 08/20/2015, 04/08/2014 DTaP/Tdap/Td Vaccine (3 - Tdap) 03/19/2023 03/19/2013 (Completed), 11/01/2012 (Completed) COVID-19 Vaccine (1 - 2023-2 5 season) 2024 Influenza Vaccine (Season Ended) 2025 Zoster/Shingles Vaccine (1 o f 2) 2034 HIV Screening (Preventive Services) Completed 02/16/2012 HPV Vaccine Aged Out No longer eligi ble based on patient's age to complete this topic HepA Vaccine Aged Out No longer eligi ble based on patient's age to complete this topic Hib Vaccine Aged Out No longer eligi ble based on patient's age to complete this topic IPV (Polio) Vaccine Aged Out No longe r eligible based on patient's age to complete this topic MCV4 Vaccine Aged Out No longer eligi ble based on patient's age to complete this topic Meningococcal B Vaccine Aged Out No l onger eligible based on patient's age to complete this topic Procedures Procedure Name Priority Date/Time Associated Diagnosis Comments LIPID PANEL & DIRECT LDL (IF NEEDED) Routine 08/20/2015 9:50 AM DIRECTOR PHONE Decreased libido HIV ANTIBODY Routine 02/16/2012 9:16 AM CDT Screen for STD (sexually transmitted disease) from Last 3 Months or Most Recently Relevant to Health Maintenance Results * (ABNORMAL) Lipid Panel and Direct LDL(If Needed) (08/20/2015 9:50 AM DIRECTOR PHONE) Cholesterol 153 0 - 199 mg/dL HP CONVERSION Triglycerides 48 4 - 149 mg/dL HP CONVERSION HDL Cholesterol 64(H) >39 mg/dL HP CONVERSION Cholesterol/HDL Ratio Screen 2.4 HP CONVERSION LDL Calculated 79 19 - 130 mg/dL HP CONVERSION Hours Fasting 10 HP CONVERSION 08/20/2015 9:50 AM DIRECTOR PHONE 08/20/2015 11:12 AM DIRECTOR PHONE Narrative HP CONVERSION - 08/20/2015 3:50 PM DIRECTOR PHONE Performed at [facility], [address] [place] [address] CLIA number [id number] .Results faxed to [phone], 08/20/2015,15:53, by [facility] us Anam Brooks MD LAB_1 Final Result Performing Organization Address [facility] de Phone Number HP CONVERSION * HIV ANTIBODY (02/16/2012 9:16 AM CDT) HIV 1/HIV 2 Non-React Non-Reacti ve HP CONVERSION 02/16/2012 9:16 AM CDT 02/16/2012 10:36 AM CDT us Pete Carvajal MD LAB_1 Final Result Performing Organization Address City/[facility] Co de Phone Number HP CONVERSION from Last 3 Months or Most Recently Relevant to Health Maintenance Advance Directives * Full Code (Latest Code Status on File) Date Activated Date Inactivated Comments 12/03/2022 2:16 AM 12/05/2022 4:04 PM Care Teams Internet And E Business Project Manager Relationship Specialty Start Date End Date Needs Pcp, [place] [address] PCP - General 12/03/22
--- OUTSIDE RECORDS SUMMARY | 2025-03-29 00:08 | XMS_ITS | Clinical Summary ---
Author Organization [employer] [facility] Address [address] [place] [address] Care Team Providers Care Countersinker Balance Screw Hole Name Role Phone None, Provided Primary Care Provider Unavailabl e Allergies No known active allergies Medications QUEtiapine (SEROQUEL) 25 mg tablet Take 25 mg by mouth every 4 hours if needed (withdrawal symptoms). Active Encounters Date Type Department Care Team Description 03/28/2025 [facility] [address] [place] [phone] Neptali Latham, [facility] Imaging from Last 3 Months Social History [...] on file Legal Sex Male 5:23 AM MATHEMATICIAN Gender Identity Not on file Sexual Orientation Not on file Obstetrics History Last Filed Vital Signs Vital Sign Reading Time Taken Comments Blood Pressure 159/88 10/03/2024 11:23 AM MATHEMATICIAN Pulse 88 10/03/2024 11:23 AM MATHEMATICIAN Temperature 37.1 C (98.7 F) 10/03/2024 7:20 AM MATHEMATICIAN Respiratory Rate 16 10/03/2024 7:20 AM MATHEMATICIAN Oxygen Saturation 97% 10/03/2024 11:23 AM MATHEMATICIAN Inhaled Oxygen Concentration - - Weight 74.8 kg (165 lb) 10/02/2024 1:30 PM MATHEMATICIAN Height 188 cm (6' 2) 10/02/2024 1:30 PM MATHEMATICIAN Body Mass Index 21.18 10/02/2024 1:30 PM MATHEMATICIAN Plan of Treatment Health Maintenance Due Date [...] this topic Insurance WORK[employer] Care Teams Countersinker Balance Screw Hole Relationship Specialty Start Date End Date None, Provided . PCP - General 06/22/10
--- OUTSIDE RECORDS SUMMARY | 2025-03-29 00:08 | XMS_ITS | Clinical Summary ---
Author Organization [facility] Address [address] [place] [address] Care Team Providers Care Die Cutter Diamond Name Role Phone Needs Pcp, Assignment Primary [...] for each transition of care or referral. [facility] Allergies Active Allergy Reactions Criticality Noted Date [...] Comments Blood Pressure 131/93 12/05/2022 8:13 AM CLERICAL ORDER FILLER Pulse 110 12/05/2022 8:13 AM CLERICAL ORDER FILLER Temperature 36.3 C (97.4 F) 12/05/2022 8:13 AM CLERICAL ORDER FILLER Respiratory Rate 20 12/05/2022 8:13 AM CLERICAL ORDER FILLER Oxygen Saturation 98% 12/05/2022 8:13 AM CLERICAL ORDER FILLER Inhaled Oxygen Concentration - - Weight 76.7 kg (169 lb) 12/03/2022 2:09 AM CLERICAL ORDER FILLER Height 185.4 cm (6' 1) 12/03/2022 2:09 AM CLERICAL ORDER FILLER Body Mass Index 22.3 12/03/2022 2:09 AM CLERICAL ORDER FILLER Plan of Treatment Health Maintenance Due Date [...] LDL (IF NEEDED) Routine 08/20/2015 9:50 AM CLERICAL ORDER FILLER Decreased libido HIV ANTIBODY Routine 02/16/2012 9:16 AM CDT Screen for STD (sexually transmitted disease) from Last 3 Months or Most Recently Relevant to Health Maintenance Results * (ABNORMAL) Lipid Panel and Direct LDL(If Needed) (08/20/2015 9:50 AM CLERICAL ORDER FILLER) Cholesterol 153 0 - 199 mg/dL HP CONVERSION Triglycerides 48 4 - 149 mg/dL HP CONVERSION HDL Cholesterol 64(H) >39 mg/dL HP CONVERSION Cholesterol/HDL Ratio Screen 2.4 HP CONVERSION LDL Calculated 79 19 - 130 mg/dL HP CONVERSION Hours Fasting 10 HP CONVERSION 08/20/2015 9:50 AM CLERICAL ORDER FILLER 08/20/2015 11:12 AM CLERICAL ORDER FILLER Narrative HP CONVERSION - 08/20/2015 3:50 PM CLERICAL ORDER FILLER Performed at [facility], [address] [place] [address] CLIA number [id number] .Results faxed to [phone], 08/20/2015,15:53, by [facility] us Anam Brooks MD LAB_1 Final Result Performing Organization Address [facility] de Phone Number HP CONVERSION * HIV ANTIBODY (02/16/2012 9:16 AM CDT) HIV 1/HIV 2 Non-React Non-Reacti ve HP CONVERSION 02/16/2012 9:16 AM CDT 02/16/2012 10:36 AM CDT us Pete Carvajal MD LAB_1 Final Result Performing Organization Address City/[facility] Co de Phone Number HP CONVERSION from Last 3 Months or Most Recently Relevant to Health Maintenance Advance Directives * Full Code (Latest Code Status on File) Date Activated Date Inactivated Comments 12/03/2022 2:16 AM 12/05/2022 4:04 PM Care Teams Die Cutter Diamond Relationship Specialty Start Date End Date Needs Pcp, [place] [address] PCP - General 12/03/22
--- OUTSIDE RECORDS SUMMARY | 2025-03-29 00:09 | XMS_ITS | Clinical Summary ---
Author Organization [facility] Address [address] [place] [address] Care Team Providers Care Cob Sawyer Name Role Phone Clinic, [facility] Primary Care Pro vider Allergies Active Allergy [...] on file Legal Sex Male 4:22 AM TANKER SERVICE ATTENDANT Gender Identity Not on file Sexual Orientation [...] CDT LIPID PROFILE Routine 09/19/2023 8:26 AM TANKER SERVICE ATTENDANT from Last 3 Months or Most Recently [...] BLOOD ORDERABLE S Final Result [facility] [address] Lab (1st floor, no room number) [place] [address], [facility] * Lipid panel (09/19/2023 8:26 AM TANKER SERVICE ATTENDANT) Cholesterol 152 <200 mg/dL 09/19/2023 9:30 AM TANKER SERVICE ATTENDANT [facility] Triglycerides 106 <150 mg/dL 09/19/2023 9:30 AM TANKER SERVICE ATTENDANT [facility] Direct Measure HDL 65 >=40 mg/dL 2022 9:30 AM TANKER SERVICE ATTENDANT [facility] LDL Cholesterol Calculated 66 <=100 mg/dL 09/19/2023 9:30 AM TANKER SERVICE ATTENDANT [facility] Non HDL Cholesterol 87 <130 mg/dL 09/19/2023 9:30 AM TANKER SERVICE ATTENDANT [facility] Blood BLOOD SPECIMEN / Unknown Venipuncture / Unknown 09/19/2023 8:26 AM TANKER SERVICE ATTENDANT 09/19/2023 8:54 AM TANKER SERVICE ATTENDANT Narrative [facility] - 09/19/2023 9:30 AM TANKER SERVICE ATTENDANT Cholesterol Desirable: <200 mg/dL Triglycerides Normal: Less [...] equal to 220 mg/dL Valarie Hayes APRN MEMORIAL DESIGNER LAB - BLOOD ORDER JEFE Final Result [facility] [address] [facility] [place] [address], [facility] [phone] from Last 3 Months or Most Recently Relevant to Health Maintenance Advance Directives For more information, please contact: [phone] * Full Code (Latest Code Status on File) Date Activated Date Inactivated Comments 09/18/2023 10:45 PM 09/20/2023 2:52 PM All basic and advanced life-sustaining interventions are performed as appropriate Question Answer Comments Code status determined by: Discussion with sisi lopez/ legal decision maker Care Teams Cob Sawyer Relationship Specialty Start Date End Date [facility] [id number] [place] [address] PCP - General 10/08/23
== END 2025-03-28 15:20 | disposition home or self-care (01) ==
PROVIDERS: PCP Family Medicine; Visit Provider Neurological Surgery
DX: D49.2 Neoplasm of unspecified behavior of bone, soft tissue, and skin (principal); M51.26 Other intervertebral disc displacement, lumbar region
CPT/HCPCS: 72158; A9575

== ENCOUNTER 2025-06-26 15:30 | Outpatient (CLI) | payer MEDICAID, SELFPAY ==
--- NOTE | 2025-06-26 16:00 | CRLHL7_ITS ---
For Patients: As a result of the 21st Century Cures Act, medical imaging exams and procedure reports are released immediately into your electronic medical record. You may view this report before your referring provider. If you have questions, please contact your health care provider. EXAM: FDG PET-CT Whole Body CLINICAL INFORMATION: 39-year-old man with history of melanoma. 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 Restaging TECHNIQUE: Radiopharmaceutical: 18F-fluorodeoxyglucose (18F-FDG) Dose: 10.91 MilliCurie. Blood glucose: 74 mg/dL. Image acquisition: At approximately 60 minutes following IV tracer administration via a left antecubital vein, positron emission tomography was performed from the vertex of the skull to the feet. Non-contrast low-dose helical CT imaging was performed over the same range without breath-hold for attenuation correction of PET images and anatomic correlation; it is neither sufficient, nor should it be substituted for diagnostic purposes. COMPARISON: Brain MRI 08/15/2023. FDG PET-CT 07/27/2023. FDG PET-CT report 03/07/2024. Lumbar spine MRI 03/28/2025 FINDINGS: Mediastinal blood pool FDG uptake: SUVMax 1.9 (301:163, 202:162) Liver background parenchymal FDG uptake: SUVMax 241 (301:222, 202:221) PET Findings: Intracranial brain lesions are inadequately characterized and staged by FDG PET-CT. If there is clinical concern for intracranial metastatic disease, correlate with MRI brain with and without gadolinium contrast for assessment and characterization of intracranial lesions. Within these limitations, no gross abnormal focal increased FDG uptake intracranially. Intense FDG uptake at left L5-S1 neural foramen, corresponding to an approximately 1.4 x 1.0 cm lesion, SUVMax 13.1 (301:277, 202:524). Previously this lesion was described as moderately FDG avid on the 03/07/2024 FDG PET-CT. No abnormal FDG avid lymphadenopathy. No abnormal focal increased FDG uptake in the visualized skeleton. -Physiologic FDG uptake in skeletal muscles of the bilateral forearms and hands obscures evaluation of FDG uptake in overlying skin. -FDG uptake in cutaneous and subcutaneous tissues of the dorsal right foot, is likely physiologic/inflammatory. Paraspinal focal FDG uptake adjacent to the right T1 transverse process, localized in the paraspinal fat, likely represents physiologic brown fat FDG uptake. Tracer uptake elsewhere is physiologic. Non-PET findings: Sequela of granulomatous disease. Multilevel degenerative changes in the spine. IMPRESSION: 1. Increased intense FDG avidity of a 1.4 x 1.0 cm lesion in the left L5-S1 neural foramen, likely represents FDG uptake at a nerve sheath tumor better characterized on the recent lumbar spine MRI. This was described as moderately FDG avid on the 03/07/2024 FDG PET-CT. This is nonspecific for a benign versus a malignant peripheral nerve sheath tumor. Consider tissue biopsy. 2. Otherwise no evidence of FDG avid malignancy. 3. Physiologic FDG uptake in skeletal muscles of the bilateral forearms and hands obscures evaluation of FDG uptake in overlying skin. FDG uptake in cutaneous and subcutaneous tissues of the dorsal right foot, is likely physiologic/inflammatory. Correlate with direct visual inspection to exclude cutaneous lesions. 4. Paraspinal focal FDG uptake adjacent to the right T1 transverse process, localized in the paraspinal fat, likely represents physiologic brown fat FDG uptake. Dictated by Henry Gonzalez MD @ 06/30/2025 7:07:37 AM (Electronically Signed)
== END 2025-06-26 15:31 | disposition home or self-care (01) ==
LOC: RAD 15:33
PROVIDERS: PCP Family Medicine; Visit Provider Internal Medicine Hematology & Oncology
DX: C43.9 Malignant melanoma of skin, unspecified (principal)
CPT/HCPCS: 78816; A9552